=== PATIENT | female | born 1960 | race Caucasian/White ===

== ENCOUNTER 2021-08-26 11:27 | Emergency (ER) | payer OTHER, SELFPAY ==
[2021-08-26 12:05] VITALS: BP 143/74; PULSE 67; RESP 18; TEMP 36.3; O2SAT 100
--- NOTE | 2021-08-26 12:15 | ED.FEMALEGU ---
HPI - Female Genitourinary General Chief complaint: Urogenital-Female Stated complaint: uti complaint Time Seen by Provider: 08/26/21 12:15 Source: patient Mode of arrival: ambulatory Limitations: no limitations History of Present Illness HPI Narrative: 61-year-old female presents with complaint of urinary frequency, urgency, dysuria for approximately 1 week. Reports that she has been taking antibacterial Azo and cranberry pills did have 2 days of relief but now woke up this morning and having dysuria again. Afebrile. Denies abdominal and back pain. History of urinary tract infections. Most recent antibiotic use in June for a ear infection. All systems reviewed and negative except as noted above. Related Data Home Medications Medication Instructions Recorded Confirmed rosuvastatin 20 mg tablet 20 tablet DAILY 08/26/21 08/26/21 trazodone 50 mg tablet 50 tablet DAILY 08/26/21 08/26/21 Allergies Allergy/AdvReac Type Severity Reaction Status Date / Time Sulfa (Sulfonamide Allergy Unknown Rash Unverified 08/26/21 12:20 Antibiotics) Review of Systems Review of Systems: CONSTITUTIONAL: Denies fever, chills, or sweats. EYES: Denies visual changes, redness, or discharge. ENT: Denies rhinorrhea, congestion, sore throat, or otalgia. CARDIOVASCULAR: Denies chest pain, palpitations, or edema. RESPIRATORY: Denies cough or dyspnea. GASTROINTESTINAL: Denies abdominal pain, nausea, vomiting, or diarrhea. GENITOURINARY: Reports dysuria, frequency, urgency. Denies hematuria. SKIN: Denies rash or itching. MUSCULOSKELETAL: Denies back pain, joint pain, or myalgia. NEUROLOGIC: Denies headache, numbness, or weakness. PSYCHIATRIC: Denies anxiety or depression. All other systems reviewed are negative, except as documented in HPI. PMFSH Comments At time of signature, agree with nursing past medical, surgical, social and family history. There is no relevant family history pertinent to the presenting complaint. Exam Narrative: GENERAL: This is a well-nourished, well-developed patient, in no apparent distress. HEAD: normocephalic, atraumatic. EYES: PERRL. Sclera clear/white. Vision is grossly intact. EARS: External ears normal NOSE: External nose normal NECK: Neck supple, non-tender without lymphadenopathy, masses or thyromegaly. CARDIOVASCULAR: Regular rate and rhythm without murmurs, gallops, or rubs. RESPIRATORY: Clear to auscultation. Breath sounds equal bilaterally. No wheezes, rales, or rhonchi. SKIN: warm, Dry, intact with no suspicious lesions or rash, good texture and turgor. NEURO: awake, alert, and oriented to person, place and time. There were no obvious focal neurologic abnormalities. EXTREMITIES: Normal range of motion to all extremities. BACK: No CVA tenderness. Course Course Level of Care: Express Care Visit Vital Signs Vital signs: Vital Signs Temperature 36.3 C L 08/26/21 12:05 Pulse Rate 67 08/26/21 12:05 Respiratory Rate 18 08/26/21 12:05 Blood Pressure 143/74 H 08/26/21 12:05 Pulse Oximetry 100 08/26/21 12:05 Oxygen Delivery Room Air 08/26/21 12:05 Temperature 36.3 C L 08/26/21 12:05 Pulse Rate 67 08/26/21 12:05 Respiratory Rate 18 08/26/21 12:05 Blood Pressure 143/74 H 08/26/21 12:05 Pulse Oximetry 100 08/26/21 12:05 Oxygen Delivery Room Air 08/26/21 12:05 Reviewed MDM - Female Genitourinary MDM Narrative Medical decision making narrative: Patient is aware of diagnosis, understands and agrees to treatment plan. Anticipatory guidance given. Patient agrees to follow-up as directed and is aware of reasons to seek care at the emergency department. Portions of this record may have been created with voice recognition software Lab Data Labs: Urine Glucose Negative Reference Range: Negative Urine Bilirubin Negative Referen
== END 2021-08-26 12:35 | disposition home or self-care (01) ==
PROVIDERS: Emergency Provider Nurse Practitioner Family
DX: N39.0 Urinary tract infection, site not specified (principal); E78.00 Pure hypercholesterolemia, unspecified
CPT/HCPCS: 81003; 87086; 99213; G0463

== ENCOUNTER 2022-04-02 16:08 | Emergency (ER) | payer OTHER, SELFPAY ==
[2022-04-02 16:27] VITALS: BP 134/66; PULSE 81; RESP 12; TEMP 37.2; O2SAT 100
--- NOTE | 2022-04-02 16:37 | ED.URI ---
HPI - URI/Sore Throat General Chief Complaint: Upper Respiratory Infection Stated Complaint: Sore Throat,Congestion,Bilateral Ear Irritation, Time Seen by Provider: 04/02/22 16:38 Source: patient Mode of arrival: ambulatory Limitations: no limitations History of Present Illness HPI Narrative: 61-year-old female presents with complaint of head and nasal congestion, bilateral ear pressure for over a week. Afebrile. Reports postnasal drainage, sinus pressure. Reports she had sore throat symptoms for started but has since resolved. Is taking Mucinex with no relief. Afebrile. Patient has to fly on a plane tomorrow. Has history of left TM perforation with surgical repair. All systems reviewed and negative except as noted above. Related Data Home Medications Medication Instructions Recorded Confirmed rosuvastatin 20 mg tablet 20 tablet DAILY 08/26/21 04/02/22 trazodone 50 mg tablet 50 tablet DAILY 08/26/21 04/02/22 pantoprazole 40 mg tablet,delayed 40 mg PO DAILY 04/02/22 04/02/22 release Allergies Allergy/AdvReac Type Severity Reaction Status Date / Time Sulfa (Sulfonamide Allergy Unknown Rash Verified 04/02/22 16:29 Antibiotics) Review of Systems Review of Systems: CONSTITUTIONAL: Denies fever, chills, or sweats. EYES: Denies visual changes, redness, or discharge. ENT: Report rhinorrhea, congestion, sore throat, and otalgia. CARDIOVASCULAR: Denies chest pain, palpitations, or edema. RESPIRATORY: Denies cough or dyspnea. GASTROINTESTINAL: Denies abdominal pain, nausea, vomiting, or diarrhea. GENITOURINARY: Denies dysuria or hematuria. SKIN: Denies rash or itching. MUSCULOSKELETAL: Denies back pain, joint pain, or myalgia. NEUROLOGIC: Denies headache, numbness, or weakness. PSYCHIATRIC: Denies anxiety or depression. All other systems reviewed are negative, except as documented in HPI. PMFSH Comments At time of signature, agree with nursing past medical, surgical, social and family history. There is no relevant family history pertinent to the presenting complaint. Exam Narrative: GENERAL: This is a well-nourished, well-developed patient, in no apparent distress. HEAD: normocephalic, atraumatic. EYES: PERRL. Sclera clear/white. Vision is grossly intact. EARS: External ears normal, auditory canals clear and without drainage, Fluid bilateral TMs. NOSE: External nose normal with no obvious nasal discharge, erythema to nares. Maxillary sinus tenderness bilaterally. THROAT: Mucous membranes moist, Erythema and drainage posterior pharynx. NECK: Neck supple, non-tender without lymphadenopathy, masses or thyromegaly. CARDIOVASCULAR: Regular rate and rhythm without murmurs, gallops, or rubs. RESPIRATORY: Clear to auscultation. Breath sounds equal bilaterally. No wheezes, rales, or rhonchi. SKIN: warm, Dry, intact with no suspicious lesions or rash, good texture and turgor. NEURO: awake, alert, and oriented to person, place and time. There were no obvious focal neurologic abnormalities. EXTREMITIES: No joint tenderness, effusion, or edema noted. Course Course Level of Care: Express Care Visit Vital Signs Vital signs: Vital Signs Temperature 37.2 C 04/02/22 16:27 Pulse Rate 81 04/02/22 16:27 Respiratory Rate 12 04/02/22 16:27 Blood Pressure 134/66 04/02/22 16:27 Pulse Oximetry 100 04/02/22 16:27 Oxygen Delivery Room Air 04/02/22 16:27 Temperature 37.2 C 04/02/22 16:27 Pulse Rate 81 04/02/22 16:27 Respiratory Rate 12 04/02/22 16:27 Blood Pressure 134/66 04/02/22 16:27 Pulse Oximetry 100 04/02/22 16:27 Oxygen Delivery Room Air 04/02/22 16:27 Reviewed MDM - URI/Sore Throat MDM Narrative Medical decision making narrative: Patient is aware of diagnosis, understands and agrees to treatment plan. Anticipatory guidance given. Patient agrees to follow-up as directed and is aware of reasons to seek care at the emergency department. Portions of this rec
== END 2022-04-02 17:30 | disposition home or self-care (01) ==
PROVIDERS: Emergency Provider Nurse Practitioner Family
DX: J01.90 Acute sinusitis, unspecified (principal); E78.00 Pure hypercholesterolemia, unspecified; K21.9 Gastro-esophageal reflux disease without esophagitis; Z86.19 Personal history of other infectious and parasitic diseases
CPT/HCPCS: 99213; G0463